=== PATIENT | female | born 1985 | race Caucasian/White ===

== ENCOUNTER 2025-04-04 08:32 | Emergency (ER) | payer OTHER, SELFPAY ==
[2025-04-04 08:50] VITALS: BP 131/87; PULSE 104; RESP 16; TEMP 37.4; O2SAT 99
--- NOTE | 2025-04-04 10:16 | CRLHL7_ITS ---
For Patients: As a result of the Century Cures Act, medical imaging exams and procedure reports are released immediately into your electronic medical record. You may view this report before your referring provider. If you have questions, please contact your health care provider. Indication: ruq pain Technique: Multiple transverse and longitudinal sonographic grayscale images of the right upper quadrant of the abdomen were obtained, supplemented with color, power, and spectral Doppler imaging. Comparison: None. Findings: Pancreas: Visualized portions normal. Liver length: 15.3 cm. Liver appearance: Normal. No biliary ductal dilation. Portal vein: Patent, hepatopetal flow. CBD: 0.3 cm. Gallbladder: Negative sonographic Cooley sign. Normal. Right kidney length: 10.1 cm. Right kidney appearance: Normal. Impression: No sonographic abnormality is seen in the right upper quadrant of the abdomen. Dictated by Bong Hdz MD @ 04/04/2025 11:27:41 AM (Electronically Signed)
[2025-04-04 10:40] LABS: Basophils Absolute Auto 0.03 K/uL (0.00-0.30); Basophils Percent Auto 0.5 % (0.0-3.0); Eosinophils Percent Auto 1.8 % (0.0-7.0); Hemoglobin* 13.4 gm/dL (12.0-16.0); Immature Granulocytes Abs Auto 0.01 K/uL (0.00-0.30); Immature Granulocytes Pct Auto 0.2 %; Lymphocytes Absolute Auto 1.88 K/uL (0.90-2.90); Mean Corpuscular HGB Conc 34 gm/dL (32-36); Mean Corpuscular Hemoglobin 31 pg (26-34); Mean Corpuscular Volume 92 fL (80-100); Monocytes Percent Auto 6.5 % (0.0-11.0); Platelet Count* 186 K/uL (140-440); RDW Coefficient of Variation % 12.4 % (11.5-15.5); Red Blood Count 4.36 m/uL (4.00-5.20); White Blood Count* 5.69 K/uL (4.50-11.00)
[2025-04-04 10:59] LABS: Slide Review Reflex No
--- OUTSIDE RECORDS SUMMARY | 2025-04-04 11:00 | XMS_ITS | Encounter Summary ---
Author Organization [facility] Address [address] [facility] [place] [address] Care Team Providers Care Sole Inker Name Role Phone [facility] Primary Care Prov ider Radha Barrientos APRN TURBINE ROOM ATTENDANT Unavailable [phone] Reason for Visit * Reason Comments Medication Refill Encounter Details Date Type Department Care Team (Late st Contact Info) Description 03/25/2016 Refill [facility] [address] [phone] Bambi Levy MD [address] [id number] Medication Refill Social History Tobacco Use Types Packs/Day Years Used Date Smoking Tobacco: Every Day Cigarettes Last attempted to quit: 03/13/2009 Alcohol Use Standard Drinks/Week Comments Not Asked 0 (1 standard drink = 0.6 oz pur e alcohol) Comments Unknown Sex and Gender Information Value Date Recorded Sex Assigned at Not on file Legal Sex Female 4:29 AM TRAINING AND DOCUMENTATION SPECIALIST Gender Identity Not on file Sexual Orientation Not on file 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
--- OUTSIDE RECORDS SUMMARY | 2025-04-04 11:00 | XMS_ITS | Encounter Summary ---
Author Organization [facility] Address [address], [place] [address] Care Team Providers Care Cigar Packer And Shader Name Role Phone Huey Tracy PA-C Primary Care Provider Encounter Details Date Type Department Care Team (Late st Contact Info) Description 11/01/2015 Emergency Room External to [facility] CHEST PAIN Social History Tobacco Use Types Packs/Day Years Used Date Smoking Tobacco: Former Cigarettes Q uit: 08/10/2013 Smokeless Tobacco: Never Alcohol Use Standard Drinks/Week Comments No 0 (1 standard drink = 0.6 oz pur e alcohol) Comments No Sex and Gender Information Value Date Recorded Sex Assigned at Not on file Legal Sex Female 6:28 AM CDT Gender Identity Not on file Sexual Orientation Not on file documented as of this encounter Plan of Treatment Not on file documented as of this encounter Visit Diagnoses Not on filedocumented in this encounter Additional Health Concerns Infection Onset Date Last Indicated Resolved Time R/O COVID19 07/17/2020 07/17/2020 07/18/2020 3:39 PM CDT R/O COVID19 08/23/2021 08/23/2021 08/24/2021 1:37 PM CDT documented as of this encounter Care Teams Cigar Packer And Shader Relationship Specialty Start Date End Date Huey Tracy PA-C [address] [place] [address] PCP - General Physician Nuts And Bolts Assembler 02/15/21 documented as of this encounter
--- OUTSIDE RECORDS SUMMARY | 2025-04-04 11:00 | XMS_ITS | Encounter Summary ---
Author Organization [facility] Address [address] [place] [address] Care Team Providers Care Restaurant Delivery Driver Name Role Phone [facility] Primary Care Prov ider Radha Barrientos APRN MIXOLOGIST Unavailable Reason for Visit * Reason Comments Medication Refill Encounter Details Date Type Department Care Team (Late st Contact Info) Description 01/24/[address] [facility] [address] [phone] Bambi Levy MD [address] [address] Medication Refill Social History Tobacco Use Types Packs/Day Years Used Date Smoking Tobacco: Former Cigarettes Q uit: 03/13/2009 Alcohol Use Standard Drinks/Week Comments Not Asked 0 (1 standard drink = 0.6 oz pur e alcohol) Comments Yes Sex and Gender Information Value Date Recorded Sex Assigned at Not on file Legal Sex Female 4:29 AM DIRECTOR EXECUTIVE COMMUNICATIONS Gender Identity Not on file Sexual Orientation Not on file documented as of this encounter Plan of Treatment Not on file documented as of this encounter Visit Diagnoses Diagnosis Uses oral contraception- Primary documented in this encounter Care Teams Restaurant Delivery Driver Relationship Specialty Start Date End Date [facility] [address] [place] [address] PCP - General 11/01/15 Radha Barrientos APRN MIXOLOGIST [address] [facility] [address] [address] Assigned OBGYN Provider 09/04/20 documented as of this encounter
--- OUTSIDE RECORDS SUMMARY | 2025-04-04 11:00 | XMS_ITS | Clinical Summary ---
Author Organization [facility] Address [address], [place] [address] Care Team Providers Care Legal Job Titles Name Role Phone Huey Tracy PA-C Primary Care Provider Source Comments You are receiving this document as you are listed as the primary care provider,follow-up provider, or the patient has been referred to you for consultation.This is in compliance with the Medicare and[facility] EHR Incentive Program,which states Providers who transition their patient to another setting of careor provider of care or refers their patient to another provider of care shouldprovide summary care record for each transition of care or referral. [facility] Allergies No known active allergies Medications Norgestimate-Et hinyl Estradiol (TRINESSA, 28,) 0.18/0.215/0.25 MG-35 MCG tabletIndicatio ns:Cough Take 1 Tab by mouth daily. Active ALBUterol sulfate HFA 108 (90 Base) MCG/ACT inhalerIndicati ons:Wheezing Inhale 2 Puffs every 4 hours as needed for Wheezing or Shortness of Breath. Do not use more than 12 puffs in 24 hours. 8.5 g 8 Active fluticasone propionate (FLONASE) 50 MCG/ACT nasal solutionIndicat ions:Acute non-recurrent maxillary sinusitis Place 2 Sprays into both nostrils daily. 16 g 1 Active Active Problems Problem Noted Date Diagnosed Date Mild intermittent asthma without complication Tobacco use disorder 2015 Resolved Problems Problem Noted Date Diagnosed Date Resolved Date Influenza-like illness 11/16/201208/29 Overview (07/05/2017): Influenza-like illness, resolving Immunizations Immunization Administration Dates Next Due DT Ped 07/11/1994 DTP 08/23/1989, 6,10/26/1985,1984,1984 Flu Vac (3+ yrs) 09/06/1999, 8,09/29/1997,1995,10/09/1995,09/06/1993 Fluzone Qiv Multidose Vial 0 .25 (6-35 Mos) 08/29/2013 HepB Adult (Engerix-B, 20+ y rs, 3 dose series) 07/11/1994 HepB Ped/Adol (0-18 yrs) 09/24/1998,02/1997,05/30/1997,1995,10/09/1995,06/29/1995,07/11/1994 Influenza IIV4 (Quadrivalent ) 0.5mL (01160) 08/29/2013 Influenza Vaccine (3+years) ([facility]) 08/30/2011 MMR 06/16/1997, 5,07/06/1992,1984 Pfizer Monovalent 12+ Purple Top 04/01/2021,02/12 Polio, Unspecified Formulation 9,09/20/1986,10/26/1985,1984,1984 Td (7+ yrs) 06/16/1997 Tdap 02/14/2013,04/30/2008 Social History Tobacco Use Types Packs/Day Years Used Date Smoking Tobacco: Light Smoker Cigarettes 0 Smokeless Tobacco: Never Alcohol Use Standard Drinks/Week Comments No 0 (1 standard drink = 0.6 oz pur e alcohol) PHQ-2 Answer Date Recorded PHQ-2 Score 0 02/19/2021 Comments No Sex and Gender Information Value Date Recorded Sex Assigned at Not on file Legal Sex Female 6:28 AM CDT Gender Identity Not on file Sexual Orientation Not on file Last Filed Vital Signs Vital Sign Reading Time Taken Comments Blood Pressure 130/88 02/19/2021 4:59 PM CDT Pulse 102 02/19/2021 4:59 PM CDT Temperature 37.1 C (98.8 F) 02/13/2021 1:07 PM CDT Respiratory Rate 18 07/17/2020 1:59 PM CDT Oxygen Saturation 100% 02/13/2021 1:07 PM CDT Inhaled Oxygen Concentration - - Weight 68.5 kg (151 lb) 02/19/2021 4:59 PM CDT Height 170.2 cm (5' 7) 02/19/2021 4:59 PM CDT Body Mass Index 23.65 02/19/2021 4:59 PM CDT Plan of Treatment Health Maintenance Due Date Last Done Comments Hep C Screening (Preventive Services) 1984 Mammogram 1984 Asthma ACT (score of 20 or higher) 1988 HIV Screening (Preventive Services) 2000 Adult Preventive Visit 2002 Pneumococcal Vaccine (1 of 2 - PCV) 2003 Cervical Cancer Screening Due 07/19/2012 07/18/2012 DTaP/Tdap/Td Vaccine (8 - Tdap) 02/14/2023 02/14/2013, 04/30/2008, 06/16/1997, Additional history exists COVID-19 Vaccine ( season) 2024 04/01/2021, 03/09/2021 Influenza Vaccine (Season Ended) 2025 08/29/2013, 08/29/2013, 08/30/2011, Additional history exists Zoster/Shingles Vaccine (1 of 2) 2034 IPV (Polio) Vaccine Completed 08/23/1989, 09/20/1986, 10/26/1985, Additional history exists HepB Vaccine Completed 09/24/1998, 02/1997, 05/30/1997, Additional history exists HPV Vaccine Aged Out No longer eligi ble based on patient's age to complete this topic HepA Vaccine Aged Out No longer eligi ble based on patient's age to complete this topic Hib Vaccine Aged Out No longer eligi ble based on patient's age to complete this topic MCV4 Vaccine Aged Out No longer eligi ble based on patient's age to complete this topic Meningococcal B Vaccine Aged Out No l onger eligible based on patient's age to complete this topic Insurance CARE PMAP CARE PMAP [facility] PMAP ADULT DENTAL HP CARE PMAP [facility] Care Teams Legal Job Titles Relationship Specialty Start Date End Date Huey Tracy PA-C [address] [place] [address] PCP - General Physician Target Setter 02/15/21
--- OUTSIDE RECORDS SUMMARY | 2025-04-04 11:00 | XMS_ITS | Encounter Summary ---
Author Organization [facility] Address [facility] [place] [address] Care Team Providers Care Airplane Dispatcher Name Role Phone [facility], [facility] Care Prov ider Radha Barrientos APRN ASSOCIATE DIRECTOR OF NURSING Unavailable [phone] Reason for Visit * Reason Comments Medication Refill Encounter Details Date Type Department Care Team (Late st Contact Info) Description 04/11/2017 Refill [facility] [address] [phone] Margaret Betancur, PA-C [address] [place] [address] Medication Refill Social History Tobacco Use Types Packs/Day Years Used Date Smoking Tobacco: Every Day Cigarettes Last attempted to quit: 03/13/2009 Smokeless Tobacco: Never Alcohol Use Standard Drinks/Week Comments Yes 0 (1 standard drink = 0.6 oz pur e alcohol) Comments No Sex and Gender Information Value Date Recorded Sex Assigned at Not on file Legal Sex Female 4:29 AM EXPANDER Gender Identity Not on file Sexual Orientation Not on file 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 Not on file documented as of this encounter Plan of Treatment Not on file documented as of this encounter Visit Diagnoses Diagnosis Rib pain on right side Chest pain, unspecified documented in this encounter Additional Health Concerns Assessment Noted Time PHQ-9 Depression Total Score: 0 03/17/20 17 7:08 AM CDT documented as of this encounter Care Teams Airplane Dispatcher Relationship Specialty Start Date End Date [facility], [address] [address] PCP - General 11/01/15 Radha Barrientos APRN [employer] [address] [address] Assigned OBGYN Provider 09/04/20 documented as of this encounter
--- OUTSIDE RECORDS SUMMARY | 2025-04-04 11:00 | XMS_ITS | Clinical Summary ---
Author Organization [place] Address [address] [facility] [place] [address] Care Team Providers Care Filament Coil Winder Name Role Phone Mary Ballardmis Primary Care Prov ider Allergies No known active allergies Medications VENTOLIN HFA 108 (90 Base) MCG/ACT inhalerIndications :Mild intermittent asthma without complication INHALE 2 PUFFS BY MOUTH EVERY 6 HOURS NEEDED FOR SHORTNESS OF BREATH, WHEEZING, DYSPNEA 18 g 9 Active norgestim-eth estrad triphasic (TRI-SPRINTEC) 0.18/0.215/0.25 MG-35 MCG tabletIndications: Oral contraceptive pill surveillance Take 1 tablet by mouth daily Needs annual exam for further refills 84 tablet 0 Active Active Problems Problem Noted Date Diagnosed Date Mild intermittent asthma without complication Irritable bowel syndrome 07/14/2012 Overview (03/02/2016): saw GI. doing stool cx and doing prn dicyclomie History of cervical dysplasia 11/13/2002 Overview (03/28/2018): 2002 Conization - JOSE MANUEL I or JOSE MANUEL II per pt '10, '11, '12 NIL paps 11/24/14 NIL pap/Neg HPV 03/16/17 NIL paps 03/22/18 NIL pap/Neg HPV. Annual pap per provider Asthma Immunizations Immunization Administration Dates Next Due DT (PEDS <7y) 07/11/1994 Hepatitis B, Adult (Energix-B/Recombivax HB) 07/11/1994 Hepatitis B, Peds (Engerix-B/Recombivax HB) 09/24/1998,06/16/1997,05/30/1997,1995,10/09/1995,06/29/1995 Historical DTP/aP 08/23/1989, 6,10/26/1985,1984,1984 Influenza (IIV3) PF 08/30/2011, 9,09/28/1998,1996,09/19/1996,10/09/1995,09/06/1993 Influenza Vaccine >6 months,quad, PF 08/29/2013 MMR (MMRII) 06/16/1997, 5,07/06/1992,1984 Polio, Unspecified 08/23/1989, 6,10/26/1985,1984,1984 Td (Adult), Adsorbed 06/16/1997 Family History Medical History Relation Comments Thyroid Cancer Father Hyperlipidemia Maternal Grandfather Ovarian Cancer Maternal Grandmother Hypertension Mother Breast Cancer Paternal Aunt Relation Status Comments Father Maternal Grandfather Maternal Grandmother Mother Paternal Aunt Social History Tobacco Use Types Packs/Day Years Used Date Smoking Tobacco: Former Cigarettes Q uit: 04/22/2019 Smokeless Tobacco: Never Tobacco Cessation:Counseling Given: No Alcohol Use Standard Drinks/Week Comments Yes 0 (1 standard drink = 0.6 oz pur e alcohol) occ AUDIT-C Answer Date Recorded Q1: How often do you have a drink containing alc ohol? Monthly or less 07/23/2019 Q2: How many drinks containi ng alcohol do you have on a typical day when you are drinking? 3 or 4 07/23/2019 Q3: How often do you have si x or more drinks on one occasion? 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 Not on file Last Filed Vital Signs Vital Sign Reading Time Taken Comments Blood Pressure 128/88 02/14/2021 10:00 PM CDT Pulse 85 02/14/2021 10:00 PM CDT Temperature 36.6 C (97.8 F) 02/14/2021 6:44 PM CDT Respiratory Rate 16 02/14/2021 6:44 PM CDT Oxygen Saturation 99% 02/14/2021 10:00 PM CDT Inhaled Oxygen Concentration - - Weight 65.3 kg (144 lb) 07/23/2019 11:07 AM CDT Height 170.2 cm (5' 7) 07/23/2019 11:07 AM CDT Body Mass Index 22.55 07/23/2019 11:07 AM CDT Plan of Treatment Not on file [facility] Care Teams Filament Coil Winder Relationship Specialty Start Date End Date Clinic, [address] [address] PCP - General 11/01/15
--- OUTSIDE RECORDS SUMMARY | 2025-04-04 11:00 | XMS_ITS | Clinical Summary ---
Author Organization [facility] Address [address] [place] [address] Care Team Providers Care Research Environmental Scientist Name Role Phone None Primary Care Provider Unavailabl e Allergies No known active allergies Medications albuterol-ipratro pium (DUONEB) (2.5-0.5 mg) in 3 mL NEBULIZATION solutionIndicatio ns:Exacerbation of asthma, unspecified asthma severity, unspecified whether persistent (HC) Inhale 3 mL via a nebulizer every 6 hours if needed for Wheezing 1st choice. 60 mL 5 3 Active albuterol HFA (Ventolin HFA) 90 mcg/actuation inhalerIndication s:Mild intermittent asthma without complication (HC) Inhale 2 Puffs by mouth 4 times daily if needed for Wheezing 1st choice. 18 g 2 4 Active benzonatate (TESSALON) 200 mg capsuleIndication s:Subacute cough Take 1 Capsule (200 mg) by mouth 3 times daily if needed for Cough. 21 Capsule 5 Active methylPREDNISolon e (Medrol, Pedro,) 4 mg tabletIndications :Occipital headache,Sinus pressure Take by mouth as instructed per packaging. 21 Tablet 5 Active fluticasone (50 mcg per actuation) nasal solution (FLONASE)Indicati ons:Sinus pressure,Acute suppurative sinusitis Inhale 2 Sprays in both nostrils once daily. 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 Dyshidrotic eczema 03/30/2022 Mild intermittent asthma with acute exacerbation 12/17/2021 Tobacco use disorder 2015 Mild intermittent asthma without complication H/O LEEP 03/13/2015 Overview (05/22/2023): Noted history of LEEP- no records or date found. Normal Pap history from 2014 on. 04/2023 NIL/HPV negative Plan: Pap/HPV due in 3 years Irritable bowel syndrome 07/14/2012 Overview (01/09/2024): saw GI. doing stool cx and doing prn dicyclomie History of cervical dysplasia 11/13/2002 Overview (01/09/2024): 2002 Conization - JOSE MANUEL I or JOSE MANUEL II per pt '10, '11, '12 NIL paps 11/24/14 NIL pap/Neg HPV 03/16/17 NIL paps 03/22/18 NIL pap/Neg HPV. Annual pap per provider Encounters Date Type Department Care Team Description 03/07/2025 9:20 AM CDT Ancillary Procedure [facility] [address] [address] [place] [address] 03/07/2025 9:05 AM CDT Office Visit [facility] [address] [facility] [address] [place] [address] Lakia Johnson, BALAJI Throat Problem 03/07/2025 Travel 01/10/2025 Refill [facility] [address] [facility] [address] [place] [address] Nora Bloom MD Refill Request (Fluticasone (50 Mcg Per Actuation) Nasal) from Last 3 Months Immunizations Immunization Administration Dates Next Due COVID-19 vaccine ([employer] 30mcg/0.3mL) PF, MDV 04/01/2021,03/09/2021 DT (Age < 7 years) 07/11/1994 DTP 08/23/1989, 6,10/26/1985,1984,1984 Hepatitis B (Adult) 07/11/1994 Hepatitis B (Peds) 09/24/1998, 7,05/30/1997,1995,10/09/1995,06/29/1995,07/11/1994 Influenza, IIV3 (Age >=3 years) 08/30/20 11,09/06/1999,09/28/1998,1996,09/19/1996,10/09/1995,09/06/1993 Influenza, IIV4 08/29/2013 Influenza, IIV4 (=>6mos) MDV 08/29/2013 MMR 06/16/1997, 5,07/06/1992,1984 Polio Virus, Unspecified 08/23/1989,06/1986,10/26/1985,1984,1984 Td (Age >=7 Years) 06/16/1997 Tdap 04/14/2023,02/14/2013,04/30/2008 Family History Medical History Relation Name Comments No Known Problems Brother Thyroid cancer Father Arthritis Maternal Grandfather Heart Disease Maternal Grandfather COPD Maternal Grandmother Thyroid Disease Mother Heart attack Paternal Grandfather Heart Disease Paternal Grandmother A hol e in her heart Cancer Paternal Uncle Throat Melanoma Sister Relation Name Status Comments Brother Alive Father Alive Maternal Grandfather Alive Maternal Grandmother Mother Alive Paternal Grandfather Paternal Grandmother Paternal Uncle Sister Alive Social History Tobacco Use Types Packs/Day Years Used Date Smoking Tobacco: Former Cigarettes 0.3 21.1 1 12/1999 - 11/13/2021 Passive Smoke Exposure: Never Smokeless Tobacco: Never Tobacco Cessation:Counseling Given: Not Answered Alcohol Use Standard Drinks/Week Comments Yes 0 (1 standard drink = 0.6 oz pur e alcohol) One drink every few months PHQ-2 Answer Date Recorded PHQ-2 TOTAL SCORE 0 10/17/2024 Social Connections Answer Date Recorded Do you often feel lonely or isolated from those around you? 0 10/17/2024 Financial Resource Strain Answer Date R ecorded Difficulty of Paying Living Expenses 3 10/17/2024 Difficulty of Paying Living Expenses Not on file 10/17/2024 Food Insecurity Answer Date Recorded Do you worry your food will run out before you are able to buy more? 1 10/17/2024 Transportation Needs Answer Date Record ed Does lack of transportation keep you from medica l appointments? 1 10/17/2024 Does lack of transportation keep you from work, meetings or getting things that you need? 1 10/17/2024 Housing Stability Answer Date Recorded What is your housing situation today? 1 10/17/2024 Utilities Answer Date Recorded Do you have trouble paying f or utilities (for example, heat, electricity, water, phone)? 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 Not on file Not on file Not on file Obstetrics History Para Term AB IAB SAB Ectopic Multiple Livin g Live Births 3 2 2 1 1 2 2 Date Outcome GA Total Labor Labor/2nd/3rd Weight Sex Type Anes PTL Shira A1 A5 Name Clin 09/13 SAB 5w0 d 05/12 Term 37w 0d F Vag-S pont Epidura l Livin g Emy 11/30 Term 39w 0d F Vag-S pont Epidura l [place] Mil[place] Last Filed Vital Signs Vital Sign Reading Time Taken Comments Blood Pressure 110/81 03/07/2025 9:07 AM CDT Pulse 97 03/07/2025 9:07 AM CDT Temperature 36.7 C (98.1 F) 03/07/2025 9:07 AM CDT Respiratory Rate 18 03/07/2025 9:07 AM CDT Oxygen Saturation 98% 03/07/2025 9:07 AM CDT Inhaled Oxygen Concentration - - Weight 63.9 kg (140 lb 12.8 oz) 11/26/2024 4:00 PM HORSE RACER Height 170.8 cm (5' 7.24) 10/17/2024 8:50 AM CS T Body Mass Index 21.89 10/17/2024 8:50 AM HORSE RACER Plan of Treatment Health Maintenance Due Date Last Done Comments COVID-19 vaccine series ( season) 2024 04/01/2021, 03/09/2021 Influenza Vaccine (Season Ended) 2025 08/29/2013, 08/29/2013, 08/30/2011, Additional history exists BMI (ht and wt on same day) for age 18+ 10/17/2025 10/17/2024, 10/03/2023, 08/12/2023, Additional history exists Depression screening for age 12+ 10/17/2025 10/17/2024 Pap test for age 21-65 04/14/2026 , 04/14/2023, 03/22/2018 (Verified in Care Everywhere or Patient Record) Colonoscopy through age 75 04/27/2028 04/27/2023 Tetanus booster 04/14/2033 04/14/2023, 0 02/2013, 04/30/2008, Additional history exists Hepatitis B series for 19+ Completed 09/24, 06/16/1997, 05/30/1997, Additional history exists HIV for age 15-65 Completed 04/14/2023 Hepatitis C screening for age 18-79 Completed 04/14/2023 Tdap Completed 04/14/2023, 0 02/2013, 04/30/2008 Pneumococcal series for age 6-49 Aged Out No longer eligible based on patient's age to complete this topic Procedures Procedure Name Priority Date/Time Associated Diagnosis Comments STREP A PCR Routine 03/07/2025 11:08 AM CDT Sore throat THROAT RAPID STREP ONLY CLINIC Routine 03/07/2025 9:59 AM CDT Sore throat XR CHEST 2 VIEWS PA AND LATERAL STAT 03/07/2025 9:33 AM CDT Cough, unspecified type SCAN-COLONOSCOPY 04/27/2023 11:0 0 AM CDT HPV HIGH RISK Routine 04/14/2023 12:29 PM CDT Pap smear for cervical cancer screening LC HIV-1/O/2, 4TH GENERATION Routine 04/14/2023 12:27 PM CDT Screening for HIV without presence of risk factors LC HCV ANTIBODY RFX TO QUANT PCR Routine 04/14/2023 12:27 PM CDT Encounter for HCV screening test for low risk patient from Last 3 Months or Most Recently Relevant to Health Maintenance Results * STREP A PCR (03/07/2025 11:08 AM CDT) Pathologist [facility] GROUP A STREP Negative 03/07/2025 7:09 PM CDT [facility] Throat SPECIMEN FROM THROAT / Unknown Non-Blood / Unknown 03/07/2025 11:08 AM CDT 03/07/2025 11:08 AM CDT us Lakia Johnson NP MICROBIOLOGY Final Resu lt [facility] [address] [place] [address], * THROAT RAPID STREP ONLY CLINIC (03/07/2025 9:59 AM CDT) POC, GROUP A STREP NOT DETECTED NOT DETECTED [facility] ( Comment: The [place] [employer] recommends that a throat culture be performed if a rapid group A streptococcus assay yields a negative result. [facility] recommends Streptococcus, Group A culture. Throat SPECIMEN FROM THROAT / Unknown 03/07/2025 9:59 AM CDT 03/07/2025 9:59 AM CDT Lakia Reedrogelio Johnson NP MICROBIOLOGY Final Resu lt [facility] [address] [place] [address], [facility] ( [address] [place] [address] * XR CHEST 2 VIEWS PA AND LATERAL (03/07/2025 9:33 AM CDT) Anatomical Region Laterality Modality CHEST, THORAX, Lung, HEART Digit al Radiography 03/07/2025 9:48 AM CDT Narrative 03/07/2025 9:48 AM CDT For Patients: As a result of the Cures Act, medical imaging exams and procedure reports are released immediately into your electronic medical record. You may view this report before your referring provider. If you have questions, please contact your health care provider. INDICATION: Cough. TECHNIQUE: Chest 2 views. COMPARISON: X-ray chest August 2014 FINDINGS/ IMPRESSION: No acute cardiopulmonary process. Bilateral lung fleming are clear. No effusion or pneumothorax. Cardiac size is within normal limits. Dictated by Andrew Murrell MD @ 03/07/2025 9:48:40 AM (Electronically Signed) Procedure Note Andrew Murrell MD - 03/07/2025 For Patients: As a result of the Cures Act, medical imagingexams and procedure reports are released immediately into your electronicmedical record. You may view this report before your referring provider.If you have questions, please contact your health care provider. INDICATION: Cough. TECHNIQUE: Chest 2 views. COMPARISON: X-ray chest August 2014 FINDINGS/ IMPRESSION: No acute cardiopulmonary process. Bilateral lung fleming are clear. No effusion or pneumothorax. Cardiac sizeis within normal limits. Dictated by nAdrew Murrell MD @ 03/07/2025 9:48:40 AM (Electronically Signed) us Vijaychristy Luis F Johnson NP GENERAL IMAGING Final Resu lt * SCAN-COLONOSCOPY (04/27/2023 11:00 AM CDT) Narrative Procedure Note Kranthi Oscar MD - 04/27/2023 10:19 AM CDT [facility] [address] [place] [address], [address], [place] [address] Patient Name: aCrley Carreon Gender: Female Exam Date: 04/27/2023 Visit Number: [id number] Age: 37 Years Date of : 1985 Attending MD: Kranthi Oscar MD Medical Record#: [id number] Procedure: Colonoscopy Indications: Rectal bleeding Referring MD: Yue Treviño CNP Primary MD: Yue Treviño CNP Medications: Admitting Medications: 0.9% Normal Saline at [facility] Intra Procedure Medications: Patient received monitored anesthesia care. Complications: No immediate complications Procedure: An examination of the heart and lungs was performed and found to be withinacceptable limits. . The patient was therefore deemed a reasonablecandidate for endoscopy and sedation. The risks and benefits of the procedure were explained to the patient.After obtaining informed consent, the patient received monitoredanesthesia care and I passed the scope without difficulty via the rectum to the cecum. The appendiceal orificeand ic valve were identified. The scope was retroflexed during theexamination The quality of the prep was good (Nasir/Gat Split). This was a complete examination throughout the entire colon. Findings: Polyp location: transverse colon. Quantity: 1. Size: 3 mm. Polyp shape:sessile. Maneuver: polypectomy was performed with a cold biopsy forceps. Removal: complete. Retrieval: complete. Bleeding: none. Polyp location: rectum. Quantity: 1. Size: 3 mm. Polyp shape: sessile. Maneuver: polypectomy was performed with a cold biopsy forceps . Removal: complete. Retrieval: complete. Bleeding: none. Anal canal: internal hemorrhoid(s) Remainder of the exam is normal. Impression: Colorectal polyps Internal hemorrhoids Preliminary Plan: The patient and their physician will receive a copy of the pathologyreport as well as pathology-based recommendations for future screening orsurveillance. Return to your primary care provider as needed. Recommendation Comments: - High fiber diet, 25 grams daily. Pathology Results: A: COLON, TRANSVERSE, POLYP: 1. Sessile serrated adenoma 2. Negative for overt dysplasia 3. Per the colonoscopy report: a. Polyp size: 3 mm b. Resection: Complete c. Retrieval: Complete B: RECTUM, POLYP: 1. Tubular adenoma 2. Negative for high grade dysplasia 3. Per the colonoscopy report: a. Polyp size: 3 mm b. Resection: Complete c. Retrieval: Complete MICROSCOPIC A: Performed B: Performed Electronically signed by: Ginger [place] [address] Final Plan: Repeat colonoscopy in 5 years. We will attempt to contact you at appropriate intervals via U.S. mail. Wemay not be able to find you or contact you at that time, therefore youshould know that the responsibility for following our recommendation restswith you. If you don't hear from us at the time your procedure is due,please contact our office to schedule an appointment. If your contactinformation should change, please contact our office so that we can updateyour record. _Electronically signed by: Kranthi Oscar MD 04/27/2023 cc: Yue Treviño CNP cc: Yue Treviño SCREW MACHINE OPERATOR SINGLE SPINDLE Kranthi Oscar MD OTHER Fin al Result * HPV HIGH RISK (04/14/2023 12:29 PM CDT) TYPE 16 Negative Negative 04/19/2023 11:03 AM CDT [facility] TYPE 18 Negative Negative 04/19/2023 11:03 AM CDT [facility] OTHER HIGH RISK TYPES Negative Negative 04/19/2023 11:03 AM CDT [facility] Other (Cervical/Vagina l) Non-Blood / Unknown 04/14/2023 12:29 PM CDT 04/17/2023 3:49 PM CDT Narrative [facility] - 04/19/2023 11:03 AM CDT HPV types 16, 18, 31, 33, 35, 39, 45, 51, 52, 56, 58, 59, 66 and 68 DNA were undetectable or below the pre-set threshold. Methodology: Neil Huseyin 4800 HPV Test Yue Treviño TV NEWS DIRECTOR MICROBIOLOGY Final Res ult Performing Organization Address City/[facility]/ZIP Co de Phone Number [facility] [address] [place] [address], [place] * LC HCV ANTIBODY RFX TO QUANT PCR (04/14/2023 12:27 PM CDT) Pathologist [facility] HCV Ab Non Reactive Non Reactive 04/18/2023 1:09 PM CDT [facility] ([facility]) Blood BLOOD SPECIMEN / Unknown Venipuncture / Unknown 04/14/2023 12:27 PM CDT 04/14/2023 12:27 PM CDT [facility] ([facility]) - 04/18/2023 1:09 PM CDT Performed at: [address] [place] [id number] Computer Hardware Designer: Bhupendra Shepherd MD, Phone: [phone] Yue Treviño NP LABORATORY Final Res ult [facility] ([facility]) [facility] [place] [address], [place] * LC HIV-1/O/2, 4TH GENERATION (04/14/2023 12:27 PM CDT) HIV Scr 4th Gen Non Reactive Non Reactive 04/18/2023 12:08 PM CDT [facility] ([facility]) Comment: HIV Negative HIV-1/HIV-2 antibodies and HIV-1 p24 antigen were NOT detected. There is no laboratory evidence of HIV infection. Blood BLOOD SPECIMEN / Unknown Venipuncture / Unknown 04/14/2023 12:27 PM CDT 04/14/2023 12:27 PM CDT Narrative [facility] ([facility]) - 04/18/2023 12:08 PM CDT Performed at: - [address] [id number] Computer Hardware Designer: Bhupendra Shepherd MD, Phone: [phone] us Yue Treviño TV NEWS DIRECTOR LABORATORY Final Res ult [facility] ([facility]) [address] [place] [address] from Last 3 Months or Most Recently Relevant to Health Maintenance Insurance [facility] SH[facility] [employer] CHOICE CARE Advance Directives * Full Code (Latest Code Status on File) Date Activated Date Inactivated Comments 01/02/2013 12:18 AM 01/02/2013 1:53 PM Care Teams Research Environmental Scientist Relationship Specialty Start Date End Date None . PCP - General 10/24/24
--- OUTSIDE RECORDS SUMMARY | 2025-04-04 11:00 | XMS_ITS | Encounter Summary ---
Author Organization [place] Address [address] [place] [address] Care Team Providers Care Manager Social Name Role Phone [facility] Primary Care Prov ider Radha Barrientos APRN MEDICAL LAB ASSISTANT Unavailable Reason for Visit * Reason Comments Medication Refill Encounter Details Date Type Department Care Team (Late st Contact Info) Description 12/30/2015 Refill [facility] [address] [phone] Bambi Levy MD [address] [address] Medication Refill Social History Tobacco Use Types Packs/Day Years Used Date Smoking Tobacco: Former Cigarettes Q uit: 03/13/2009 Alcohol Use Standard Drinks/Week Comments Not Asked 0 (1 standard drink = 0.6 oz pur e alcohol) Comments Yes Sex and Gender Information Value Date Recorded Sex Assigned at Not on file 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 Gender Identity Not on file Sexual Orientation Not on file documented as of this encounter Plan of Treatment Not on file documented as of this encounter Visit Diagnoses Diagnosis Acute asthma exacerbation- Primary Unspecified asthma, with exacerbation documented in this encounter Care Teams Manager Social Relationship Specialty Start Date End Date [facility], [facility] [address] [place] [address] PCP - General 11/01/15 Radha Barrientos APRN MEDICAL LAB ASSISTANT [address] [place], [place] [address] Assigned OBGYN Provider 09/04/20 3 documented as of this encounter
--- OUTSIDE RECORDS SUMMARY | 2025-04-04 11:00 | XMS_ITS | Encounter Summary ---
Author Organization [place] Address [address] [facility] [place] [address] Care Team Providers Care Carrier Packer Name Role Phone [facility], [facility] Care Prov ider Radha Barrientos APRN COMPUTER PERIPHERAL EQUIPMENT OPERATOR Unavailable [phone] Reason for Visit * Reason Comments Medication Refill Encounter Details Date Type Department Care Team (Late st Contact Info) Description 02/27/2016 Refill [facility] [address] [phone] Bambi Levy MD [address] [address] Medication Refill Social History Tobacco Use Types Packs/Day Years Used Date Smoking Tobacco: Former Cigarettes Q uit: 03/13/2009 Alcohol Use Standard Drinks/Week Comments Not Asked 0 (1 standard drink = 0.6 oz pur e alcohol) Comments Yes Sex and Gender Information Value Date Recorded Sex Assigned at Not on file 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 I called pt and reminded of needed appt. Transferred to scheduling to make appt documented in this encounter Plan of Treatment Not on file documented as of this encounter Visit Diagnoses Diagnosis OCP (oral contraceptive pills) initiation- Primary General counseling for prescription of oral contraceptives Oral contraceptive pill surveillance Surveillance of previously prescribed contraceptive pill documented in this encounter Care Teams Carrier Packer Relationship Specialty Start Date End Date [facility], [address] [address] PCP - General 11/01/15 Radha Barrientos APRN COMPUTER PERIPHERAL EQUIPMENT OPERATOR [address] [address] Assigned OBGYN Provider 09/04/20 documented as of this encounter
[2025-04-04 11:10] LABS: Albumin* 4.4 g/dL (3.3-5.0); Chloride* 105 mmol/L (96-114); Sodium* 138 mmol/L (135-149)
[2025-04-04 11:11] LABS: Potassium* 4.4 mmol/L (3.6-5.1)
[2025-04-04 11:13] LABS: Alanine Aminotransferase* 15 U/L (4-35); Alkaline Phosphatase* 65 U/L (40-150); Anion Gap 7 mEq/L (7-15); Aspartate Amino Transferase* 18 U/L (12-35); Blood Urea Nitrogen* 10 mg/dL (5-24); Carbon Dioxide* 26 mmol/L (20-32); Creatinine* 0.7 mg/dL (0.5-1.5); Estimated Glomerular Filt Rate 112 ml/min; Lipase* 52 U/L (23-300); Total Protein* 7.5 g/dL (6.0-8.3)
[2025-04-04 11:14] LABS: Calcium* 9.2 mg/dL (8.4-10.6); Glucose* 92 mg/dL (60-115)
[2025-04-04 11:39] LABS: Appearance Urine Clear (Clear); Bilirubin Urine Negative (Negative); Blood Urine 1+ (Negative); Color Urine Yellow (Yellow); Glucose Urine Negative (Negative); Ketones Urine 1+ (Negative); Leukocyte Esterase Urine Negative (Negative); Nitrite Urine Negative (Negative); Protein Urine Negative (Negative); Urobilinogen Urine 0.2 (0.2-1.0); pH Urine 5.5 (5.0-8.5)
[2025-04-04 12:02] LABS: Bacteria Urine Few; Squamous Epithelial Cell Urine Few (None-Few)
--- NOTE | 2025-04-04 12:24 | CRLHL7_ITS ---
For Patients: As a result of the 21st Century Cures Act, medical imaging exams and procedure reports are released immediately into your electronic medical record. You may view this report before your referring provider. If you have questions, please contact your health care provider. INDICATION: Dyspnea. Chest pain. TECHNIQUE: Multiplanar CT pulmonary angiogram was performed after the administration of 95 mL of Isovue 370 intravenous contrast. COMPARISON: None. FINDINGS: Lower neck: The visualized thyroid is unremarkable. Cardiovascular: Contrast opacification of the pulmonary arterial tree is adequate. Heart size is normal. Thoracic aorta and pulmonary artery are normal in caliber. No significant atherosclerotic calcifications of the aortic arch. No significant coronary arterial calcifications. No pulmonary embolus. Mediastinum and lymph nodes: Unremarkable. No pathologic mediastinal or hilar lymphadenopathy by size criteria. Lungs: No focal consolidation. Biapical pleural-parenchymal scarring. Dependent atelectasis. Left upper lobe subpleural nodule measuring 7 mm, likely due to scarring. Linear bandlike opacification of the lung bases bilaterally, likely subsegmental atelectasis and/or scarring. Airways: The trachea remains patent and midline. Mild diffuse peribronchial wall thickening. Pleura: No pleural effusions or pneumothorax Chest wall: Unremarkable. Prominent axillary lymph nodes that do not meet size criteria for lymphadenopathy. Bones: No acute osseous abnormalities. Mild degenerative changes of the thoracic spine. Upper abdomen: No acute findings in the visualized upper abdomen. No reflux of contrast material into the IVC. IMPRESSION: 1. No pulmonary embolus. No CT evidence of right heart strain. 2. 7 mm left upper lobe subpleural nodular opacity, likely due to pleural parenchymal scarring. Consider a repeat CT in 3-6 months to assess stability or resolution. Please note that all CT scans at this facility use dose modulation, iterative reconstruction, and/or weight-based dosing when appropriate to reduce radiation dose to as low as reasonably achievable. Dictated by Sam Kellogg MD @ 04/04/2025 1:32:21 PM (Electronically Signed)
--- NOTE | 2025-04-04 12:25 | ED_ITS ---
HPI - Abdominal Pain General Chief Complaint: Abdominal Pain Stated Complaint: Right abdominal pain Time Seen by Provider: 04/04/25 10:13 History of Present Illness HPI narrative: Patient is a 39-year-old woman comes in today with a 24 hour history of pain in the right upper quadrant and right lower chest. She has had generalized anorexia but no fevers no chills no night sweats no reflux symptoms no palpitations. No overt abdominal pain no change in her bowel or bladder. Patient has had no similar symptoms previously. She takes no home medications. She has otherwise been in her usual state of health no recent injuries or illnesses. Related Data Home Medications ?Medication ?Instructions ?Recorded ?Confirmed No Known Home Medications 04/04/2503/14 Allergies Allergy/AdvReac Type Severity Reaction Status Date / Time No Known Drug Allergies Allergy Verified 04/04/25 13:13 Review of Systems Status of ROS Reports: 10 or more systems reviewed and unremarkable except as noted in History and below PFSH PFS Social History Smoking Status: Former smoker How often do you have a drink containing alcohol: never AUDIT-C Alcohol total score: 0 Non-prescribed substance use: denies use Exam 2 Narrative: Exam Narrative: EXAM GENERAL: Patient appears comfortable and well. EYES: No scleral icterus. LYMPH: No supraclavicular or cervical lymphadenopathy. SKIN: Visible skin seen during exam normal or with benign process only. EXT: No dependent lower extremity pedal edema. HEART: Regular rate and rhythm with no murmurs, rubs, or gallops. LUNGS: Clear to auscultation bilaterally with no crackles or wheezes. ABD: Soft, non tender, non distended. PSYCH: Good eye contact, speech is not pressured. Const: Vital Signs, click to edit/add: Vital Signs - 24 hr 04/04/25 08:50 Temperature 99.3 F Pulse Rate [Pulse Oximeter] 104 H Respiratory Rate 16 Blood Pressure [Ri ght Upper Arm] 131/87 Pulse Oximetry 99 Oxygen Delivery Me thod Room Air Course Course ED Course: Patient seen examined. Right upper quadrant ultrasound normal. Liver function tests metabolic panel CBC lipase normal. Time will proceed with CTA of the chest and follow up based on those results. Vital Signs Vital signs: Initial Vital Signs Temperature 99.3 F 04/04/25 08:50 Temperature Source Temporal Artery Scan 04/04/25 08:50 Pulse Rate 104 H 04/04/25 08:50 Respiratory Rate 16 04/04/25 08:50 Blood Pressure 131/87 04/04/25 08:50 Blood Pressure Mean 101 04/04/25 08:50 Blood Pressure Position Sitting 04/04/25 08:50 Pulse Oximetry 99 04/04/25 08:50 Oxygen Delivery Method Room Air 04/04/25 08:50 Vital Signs Temperature 99.3 F 04/04/25 08:50 Pulse Rate 104 H 04/04/25 08:50 Respiratory Rate 16 04/04/25 08:50 Blood Pressure 131/87 04/04/25 08:50 Pulse Oximetry 99 04/04/25 08:50 Oxygen Delivery Method Room Air 04/04/25 08:50 Temperature 99.3 F 04/04/25 08:50 Pulse Rate 104 H 04/04/25 08:50 Respiratory Rate 16 04/04/25 08:50 Blood Pressure 131/87 04/04/25 08:50 Pulse Oximetry 99 04/04/25 08:50 Oxygen Delivery Method Room Air 04/04/25 08:50 MDM - Abdominal Pain MDM Narrative Medical decision making narrative: Patient who presents with right upper quadrant pain. She had a negative ultrasound of her gallbladder. Labs are normal. Her pain is localizable to the low ribs on the right. I did do a CTA do not see any significant pathology. This point patient is otherwise asymptomatic. I would recommend she consider HIDA scan as an outpatient. Patient otherwise can pursue symptomatic treatment to follow-up as needed. Lab Data Labs: Lab Results 04/04/25 04/04/25 Range/Units 10:30 11:00 WBC 5.69 (4.50-11.00) K/uL RBC 4.36 (4.00-5.20) m/uL Hgb 13.4 (12.0-16.0) gm/dL Hct 40.0 (33.0-51.0) % MCV 92 (80-100) fL MCH 31 (26-34) pg MCHC 34 (32-36) gm/dL RDW Coeff of Guy 12.4 (11.5-15.5) % Plt Count 186 (140-440) K/uL Neut % (Auto) 58.0 (42.0-72.0) % Lymph % (Auto) 33.0 (20-44) % Pitkin % (Auto) 6.5 (0.0-11.0) % Eos % (Auto) 1.8 (0.0-7.0) % Baso % (Auto) 0.5 (0.0-3.0) % Neut # (Auto) 3.30 (1.7-7.0) K/uL Lymph # (Auto) 1.88 (0.90-2.90) K/uL Pitkin # (Auto) 0.40 (0.00-0.90) K/UL Eos # (Auto) 0.10 (0.00-0.50) K/uL Baso # (Auto) 0.03 (0.00-0.30) K/uL Abs Immat Gran (auto) 0.01 (0.00-0.30) K/uL Imm/Tot Granulo (auto) 0.2 % Sodium 138 (135-149) mmol/L Potassium 4.4 (3.6-5.1) mmol/L Chloride 105 (96-114) mmol/L Carbon Dioxide 26 (20-32) mmol/L Anion Gap 7 (7-15) mEq/L BUN 10 (5-24) mg/dL Creatinine 0.7 (0.5-1.5) mg/dL Estimated GFR 112 ml/min Glucose 92 (60-115) mg/dL Calcium 9.2 (8.4-10.6) mg/dL Total Bilirubin 1.0 (0.1-1.5) mg/dL AST 18 (12-35) U/L ALT 15 (4-35) U/L Alkaline Phosphatase 65 (40-150) U/L Total Protein 7.5 (6.0-8.3) g/dL Albumin 4.4 (3.3-5.0) g/dL Lipase 52 (23-300) U/L Urine Color Yellow (Yellow) Urine Appearance Clear (Clear) Urine pH 5.5 (5.0-8.5) Ur Specific [place] 1.020 (1.000-1.030) Urine Protein Negative (Negative) Urine Glucose (UA) Negative (Negative) Urine Ketones 1+ A (Negative) Urine Blood 1+ A (Negative) Urine Nitrite Negative (Negative) Urine Bilirubin Negative (Negative) Urine Urobilinogen 0.2 (0.2-1.0) Ur Leukocyte Esterase Negative (Negative) Urine RBC 2-5 A (0-2) Urine WBC 2-5 (0-5) Ur Squamous Epith Cells Few (None-Few) Urine Bacteria Few A (None) Discharge Plan Discharge Clinical Impression: Abdominal pain Patient Disposition: Home, Self-Care Condition: Stable Instructions: Abdominal Pain (ED) Additional Instructions: Tylenol Motrin Rest Review CT scan with your primary doctor. Consider HIDA scan as an outpatient. Activity Level: No Restrictions Discharge Diet: Regular Prescriptions: No Action No Known Home Medications Follow Up/Referrals: Provider,Not a Local [Primary Care Provider, Family Practice] Stand Alone Forms: [employer] Info Instructions
== END 2025-04-04 13:50 | disposition home or self-care (01) ==
PROVIDERS: Emergency Provider Internal Medicine
DX: R10.11 Right upper quadrant pain (principal)
CPT/HCPCS: 36415; 71275; 76705; 80053; 81001; 81003; 83690; 85025; 87086; 99283; 99284; Q9967